=== PATIENT | male | born 1995 | race Caucasian/White ===

== ENCOUNTER 2021-12-31 12:06 | Emergency (ER) | payer OTHER ==
[2021-12-31] MEDS ORDERED: DIPHTH,PERTUSS(ACELL),TET 0.5 ML DISP.SYRIN IM ONE ×2 (12:47→12:49)
[2021-12-31 12:59] VITALS: BP 119/72; PULSE 79; TEMP 98.9; BMI 33.2
== END 2021-12-31 13:17 | disposition home or self-care (01) ==
LOC: FER 12:06
PROC: 3E0234Z Introduction of Serum, Toxoid and Vaccine into Muscle, Percutaneous Approach (ICD-10-PCS; principal; 2021-12-31)
DX: S61.210A Laceration without foreign body of right index finger without damage to nail, initial encounter (principal); W26.8XXA Contact with other sharp object(s), not elsewhere classified, initial encounter; Y93.G1 Activity, food preparation and clean up
CPT/HCPCS: 90715; 99284-25